=== PATIENT | female | born 1980 | race Caucasian/White ===

== ENCOUNTER → 2016-12-08 18:42 | Outpatient (CLI) | payer BC | END | disposition home or self-care (01) | LOC: D.MAMMO 14:00 | DX: Z12.31 Encounter for screening mammogram for malignant neoplasm of breast (principal) ==

== ENCOUNTER → 2017-01-12 16:38 | Outpatient (CLI) | payer BC | END | disposition home or self-care (01) | LOC: D.MAMMO 16:38 | DX: R92.8 Other abnormal and inconclusive findings on diagnostic imaging of breast (principal) ==

== ENCOUNTER 2019-12-12 08:00 | Outpatient (CLI) | payer BC | END 2019-12-12 10:05 | disposition home or self-care (01) | LOC: D.MAMMO 08:00 | PROVIDERS: ATTEND Clinical Nurse Specialist Adult Health | DX: Z12.31 Encounter for screening mammogram for malignant neoplasm of breast (principal) ==